=== PATIENT | female | born 1995 | race Caucasian/White ===

== ENCOUNTER 2024-07-13 09:13 | Outpatient (CLI) | payer BC, OTHER, SELFPAY ==
--- NOTE | 2024-07-13 09:15 | CRLHL7_ITS ---
For Patients: As a result of the Century Cures Act, medical imaging exams and procedure reports are released immediately into your electronic medical record. You may view this report before your referring provider. If you have questions, please contact your health care provider. OB ULTRASOUND LESS THAN 14 WEEKS, 07/13/2024 COMPARISON: None. TECHNIQUE: Real time cannon scale imaging of the fetus was performed. Transvaginal imaging performed. FINDINGS: Imaging: TV. LMP: 05/17/2024. CASS by LMP: 02/21/2025. GA: 8 weeks 1 day. CRL: 1.6 cm, 8 weeks 0 days. CASS 02/22/2025. FHR: 161 bpm. GEST SAC: 2.9 cm, appears WNL. YOLK SAC: 3.7 mm, appears WNL. RIGHT OV: 3 x 2.2 x 3 cm, WNL. CL. LEFT OV: 2.7 x 1.7 x 2.3 cm, WNL. IMPRESSION: Single living intrauterine measuring 8 weeks 0 days and sonographic due date 02/22/2025. Jax Perez M.D. Diagnostic Radiologist [email or web address] Transcribed: 12:47 am DW/Dictated by: Jax Perez MD @ 07/13/2024 9:53:00 AM (Electronically Signed)
== END 2024-07-13 09:14 | disposition home or self-care (01) ==
PROVIDERS: Visit Provider Physician Assistant
DX: Z34.91 Encounter for supervision of normal pregnancy, unspecified, first trimester (principal); Z3A.08 8 weeks gestation of pregnancy
CPT/HCPCS: 76817; 83021; 86592; 86703; 86704; 86706; 86762; 86787; 86803; 86850; 86900; 86901; 87086; 87340; 87491; 87591

== ENCOUNTER 2024-09-21 10:15 | Outpatient (CLI) | payer BC, SELFPAY ==
--- NOTE | 2024-09-21 10:15 | CRLHL7_ITS ---
For Patients: As a result of the Century Cures Act, medical imaging exams and procedure reports are released immediately into your electronic medical record. You may view this report before your referring provider. If you have questions, please contact your health care provider. INDICATION: Cervical assessment. History of delivery. TECHNIQUE: Ultrasound OB pelvis transabdominal and transvaginal, limited views of the cervix. COMPARISON: Ob ultrasound on September 07, 2024. FINDINGS: LMP: 02/21/2025, gestational age of 18 weeks and 1 day Cervix is visualized measuring 4-4.9 cm on transvaginal view. positioning: Transverse, maternal right heart rate: 149 beats per minute. Placenta: Posterior Amniotic fluid: 3.7 cm Difficult to delineate internal cervical os and placenta edge due to persistent lower uterine contraction during the entire exam. IMPRESSION: 1. Single living intrauterine gestation in transverse presentation. 2. Cervix measures approximately 4-4.9 cm on transvaginal view. 3. Difficult to delineate internal cervical os and placenta edge secondary to persistent lower uterine contractions during the entire exam. Placenta previa may still be present. Recommend close follow-up. Dictated by Ailyn Bolton MD @ 09/25/2024 5:35:16 PM (Electronically Signed)
== END 2024-09-21 10:16 | disposition home or self-care (01) ==
LOC: US 10:16
PROVIDERS: Visit Provider Obstetrics & Gynecology
DX: O09.212 Supervision of pregnancy with history of pre-term labor, second trimester (principal); Z3A.18 18 weeks gestation of pregnancy
CPT/HCPCS: 76815; 76816; 76817

== ENCOUNTER 2024-10-19 10:09 | Outpatient (CLI) | payer BC, SELFPAY ==
--- NOTE | 2024-10-19 10:15 | CRLHL7_ITS ---
For Patients: As a result of the Century Cures Act, medical imaging exams and procedure reports are released immediately into your electronic medical record. You may view this report before your referring provider. If you have questions, please contact your health care provider. OB ULTRASOUND FOLLOW-UP/LIMITED, 10/19/2024 CLINICAL HISTORY: History of pre-term labor. COMPARISON: 09/21/2024, 09/07/2024, 08/10/2024. TECHNIQUE: Real time cannon scale imaging of the fetus was performed. Transabdominal and transvaginal imaging performed. Transvaginal ultrasound of the pelvis was performed to better evaluate the genitourinary organs such as the ovaries and/or endometrium. FINDINGS: CASS by LMP: 02/21/2025. GA: 22 weeks 1 day. Cervix: Visualized. TV measurement 4.2 cm. Positioning: Vertex. Amniotic Fluid: 5.4 cm SDP. Placenta: Technique: TA and TV. Placenta Position: Posterior. Dopplers: Heart Rate: 149 bpm. IMPRESSION: 1. Transvaginal imaging of the cervix performed. The cervix is closed and measures 4.2 cm without funneling or endocervical fluid. 2. Posterior placenta. The placental edge still appears to be over the internal cervical os representing persistent previa. Jax Perez M.D. Diagnostic Radiologist [email or web address] Transcribed: 12:24 pm DW/Dictated by: Jax Perez MD @ 10/19/2024 11:26:00 AM (Electronically Signed)
== END 2024-10-19 10:10 | disposition home or self-care (01) ==
LOC: US 10:09
PROVIDERS: Visit Provider Obstetrics & Gynecology
DX: O09.212 Supervision of pregnancy with history of pre-term labor, second trimester (principal); Z3A.22 22 weeks gestation of pregnancy
CPT/HCPCS: 76816; 76817

== ENCOUNTER 2024-11-02 12:11 | Outpatient (CLI) | payer BC, SELFPAY ==
--- NOTE | 2024-11-02 12:15 | CRLHL7_ITS ---
For Patients: As a result of the Cures Act, medical imaging exams and procedure reports are released immediately into your electronic medical record. You may view this report before your referring provider. If you have questions, please contact your health care provider. OB ULTRASOUND CASS by LMP: 02/21/2025. GA: 24 w, 1 d. Single. Comparison: 10/19/2024, 09/21/2024, 09/07/2024. INDICATION: Cervix/placenta evaluation. History of pre-term labor. TECHNIQUE: Real time grayscale imaging of the fetus was performed. Transabdominal and transvaginal. Transvaginal imaging performed to better evaluate the cervix. CERVIX: Visualized. TV Measurement: 3.8 cm. POSITIONING: Breech. AMNIOTIC FLUID: 4.7 cm. SDP (N: greater than 2 x 1 cm) PLACENTA: Technique: Transabdominal. PLACENTA POSITION: Posterior. DOPPLER: heart rate: 144 bpm. IMPRESSION: 1. The cervix is closed and measures 3.8 cm, confirmed with transvaginal imaging. 2. Posterior placenta is present with the edge of the placenta overlying the internal cervical os consistent with previa. Jax Perez M.D. Diagnostic Radiologist [email or web address] TRINH/stephen mitchell/Dictated by: Jax Perez MD @ 11/02/2024 4:05:00 PM (Electronically Signed)
== END 2024-11-02 12:12 | disposition home or self-care (01) ==
LOC: US 12:11
PROVIDERS: Visit Provider Obstetrics & Gynecology
DX: O09.212 Supervision of pregnancy with history of pre-term labor, second trimester (principal); Z3A.24 24 weeks gestation of pregnancy
CPT/HCPCS: 76815; 76817

== ENCOUNTER 2024-12-02 09:06 | Outpatient (CLI) | payer BC, SELFPAY ==
--- NOTE | 2024-12-02 09:15 | US_ITS ---
Patient: SRINI GILMAN Facility:?[facility] Patient ID:?[id number] Site Patient ID:?[id number]. Site :?[id number] Study:?US-OB Pelvis LMT with TV-12/02/2024 10:22:10 AM Ordering Physician:?Reyes Mandel Final Report: OB ULTRASOUND LMP: 05/17/2024. CASS by LMP: 02/21/2025. GA: 28 w, 3 d. Single. Comparison: Ultrasound 11/02/2024, 10/19/2024, 09/21/2024. INDICATION: Follow-up cervix/placenta. TECHNIQUE: Real time grayscale imaging of the fetus was performed. Transabdominal and transvaginal. Transvaginal imaging performed to better demonstrated the cervix. CERVIX: Visualized. TV Measurement: 3.2 cm. POSITIONING: Vertex. AMNIOTIC FLUID: 3.3 cm. SDP (N: greater than 2 x 1 cm) PLACENTA: Technique: Transabdominal. PLACENTA POSITION: Posterior. DOPPLER: heart rate: 142 bpm. IMPRESSION: Transvaginal and transabdominal imaging utilized. The edge of the posterior placenta is located 9 mm from the internal cervical os with transvaginal imaging. The cervix is closed and measures 3.2 cm. Jax Perez M.D. Diagnostic Radiologist [email or web address] TRINH/stephen D& Transcribed: 12:41 p.mNyla mitchell/Dictated by: Jax Perez MD @ 12/02/2024 11:04:00 AM Signed by:?Jax Perez MD @12/02/2024 12:47:20 PM (Electronic Signature)
== END 2024-12-02 09:07 | disposition home or self-care (01) ==
LOC: US 09:06
PROVIDERS: Visit Provider Obstetrics & Gynecology
DX: Z34.93 Encounter for supervision of normal pregnancy, unspecified, third trimester (principal); Z3A.28 28 weeks gestation of pregnancy
CPT/HCPCS: 76815; 76817; 86592

== ENCOUNTER 2024-12-07 08:40 | Outpatient (CLI) | payer BC, SELFPAY | END 2024-12-07 08:41 | disposition home or self-care (01) | LOC: NFLDREF 12-23 03:11 | PROVIDERS: Visit Provider Obstetrics & Gynecology | DX: R73.09 Other abnormal glucose (principal) | CPT/HCPCS: 82951; 82952 ==

== ENCOUNTER 2025-01-13 09:21 | Outpatient (CLI) | payer BC, SELFPAY ==
--- NOTE | 2025-01-13 09:15 | CRLHL7_ITS ---
For Patients: As a result of the Cures Act, medical imaging exams and procedure reports are released immediately into your electronic medical record. You may view this report before your referring provider. If you have questions, please contact your health care provider. OB ULTRASOUND LMP: 05/17/2024. CASS by LMP: 02/21/2025. GA: 34 w, 3 d. Single. Comparison: 12/02/2024, 11/02/2024, 10/19/2024. INDICATION: Placental edge. TECHNIQUE: Real time grayscale imaging of the fetus was performed. Transabdominal and transvaginal. Transvaginal imaging performed to better evaluate the cervix. CERVIX: Visualized. TV Measurement: 2.4-2.9 cm. POSITIONING: Vertex. AMNIOTIC FLUID: 5.9 cm. SDP (N: greater than 2 x 1 cm) PLACENTA: Technique: Transabdominal. PLACENTA POSITION: Posterior. DOPPLER: heart rate: 152 bpm. IMPRESSION: The cervix is closed and measures 2.9 cm. No funneling or endocervical fluid. The edge of the posterior placenta is located 1.9 cm from the internal cervical os with transvaginal imaging. Jax Perez M.D. Diagnostic Radiologist [email or web address] TRINH/stephen mitchell/Dictated by: Jax Perez MD @ 01/13/2025 10:51:00 AM (Electronically Signed)
== END 2025-01-13 09:22 | disposition home or self-care (01) ==
LOC: US 09:21
PROVIDERS: Visit Provider Obstetrics & Gynecology
DX: O44.43 Low lying placenta NOS or without hemorrhage, third trimester (principal); Z3A.34 34 weeks gestation of pregnancy
CPT/HCPCS: 76816; 76817

== ENCOUNTER 2025-01-25 13:00 | Outpatient (CLI) | payer BC, SELFPAY ==
--- NOTE | 2025-01-25 13:00 | CRLHL7_ITS ---
For Patients: As a result of the Century Cures Act, medical imaging exams and procedure reports are released immediately into your electronic medical record. You may view this report before your referring provider. If you have questions, please contact your health care provider. OB ULTRASOUND CASS by LMP: 02/21/2025. GA: 36 w, 1 d. Single. Comparison: 03/15/2024, 12/02/2024, 11/02/2024. INDICATION: Low-lying placenta. TECHNIQUE: Real time grayscale imaging of the fetus was performed. Transabdominal and transvaginal. Transvaginal imaging performed to better demonstrated the cervix. CERVIX: Visualized. TV measurement: 2.4 cm. POSITIONING: Vertex. AMNIOTIC FLUID: 5.8 cm. SDP (N: greater than 2 x 1 cm) PLACENTA: Technique: Transabdominal. PLACENTA POSITION: Posterior. PLACENTAL EDGE: 3 cm. DOPPLER: heart rate: 152 bpm. IMPRESSION: Transvaginal evaluation of the cervix and placenta performed. The cervix is closed and measures 2.4 cm. The edge of the posterior placenta is located 3 cm from the internal cervical os. Jax Perez M.D. Diagnostic Radiologist [email or web address] TRINH/stephen mitchell/Dictated by: Jax Perez MD @ 01/25/2025 4:04:00 PM (Electronically Signed)
== END 2025-01-25 13:01 | disposition home or self-care (01) ==
LOC: US 13:00
PROVIDERS: Visit Provider Physician Assistant
DX: O44.43 Low lying placenta NOS or without hemorrhage, third trimester (principal); Z3A.36 36 weeks gestation of pregnancy
CPT/HCPCS: 76816; 76817

== ENCOUNTER 2025-01-27 20:30 | Inpatient (IN) | payer BC, SELFPAY ==
[2025-01-27 17:14] VITALS: BP 132/88; PULSE 89
[2025-01-27 17:17] VITALS: RESP 16; TEMP 37.2
[2025-01-27 19:22] VITALS: BP 130/89; PULSE 79; PULSE 82; O2SAT 97
[2025-01-27 20:43] VITALS: BP 121/75; PULSE 84; RESP 18; TEMP 36.7; O2SAT 98
[2025-01-28] VITALS (34 sets, daily range): BP systolic 97–133; BP diastolic 52–92; PULSE 67–104; RESP 16–20; TEMP 36.6–36.8; O2SAT 96–100; BMI 30.1
--- NOTE | 2025-01-28 08:57 | PM.OBHPLI ---
OB - H&P: HPI Labor/Induction History of Present Illness Date Seen: 01/28/25 Chief Complaint: Chad is a 29-year-old G2 P 0-1-0-1 woman at 36 weeks, 4 days gestation who was been observed overnight for contractions. She has a history of pre term labor after PPROM at 33 weeks in her previous . She felt contractions were getting stronger last night, but is now only feeling slight cramping. This is also complicated by/notable for: 1. History of pulmonary embolism in May 2020. She has been treated with Lovenox 40 mg nightly, with her last dose on the evening of 01/26/2025. 2. Posterior placenta previa, having resolved 01/25/2025 Chief complaint: Maternity Narrative: Chad Dover is a 29 year old female Specific Issues/Plans Partner: Toro Daughter: Jaimee Baby: Eagle! Dr. Dodson's [id number] # History of PE in 05/2020. She had COVID-19 in December of 2019 and had been on OCPs, however discontinued in March of 2020. Per patient report thrombophilia workup was negative On intermediate dose Lovenox 40 mg b.i.d.- changed to 40mg daily by [facility]. 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 - Consider recheck hepB immunity at future labs # thickened NT, greater than the 95th percentile at 12 weeks Low risk NIPT # Elevated 1 hr GTT = 151 3 hr GTT entirely normal # Posterior placenta previa on [facility] USN at 16wks, 20 weeks, RESOLVED 01/25 Pelvic rest Repeat US 12/02: low lying posterior placenta 9 mm from internal os Low-lying placenta 1.85 cm from internal os at 34 weeks: Continued pelvic rest Group consensus 01/19: Type and cross 2 u, two large bore IVs, appropriate for vaginal delivery Desires repeat ultrasound at 36 weeks to reassess placenta: 3.0 cm from internal os Imaging: - 08/10/24: Single tone at 12 weeks 1 day. The nuchal translucency measurement was thickened at more than 95th percentile. Nasal bone was visualized. Sonographic biometry agrees with gestational age predicted by signed CASS. Visualized anatomy appropriate for early gestational age. MFM consult 08/20/24:Recommendations: Medications: Can change to prophylactic anticoagulation Lovenox 40 mg daily for the remainder of the and continued for at least 6 weeks . Close monitoring for signs/symptoms of VTE and immediate evaluation if any occur. Ultrasound surveillance: Serial cervical length measurements every 2 weeks from 16-24 weeks increasing frequency 2 weekly cervical length is less than 30 mm. If cervical shortening less than 25 mm prior to 24 weeks recommend further counseling regarding treatment with vaginal progesterone versus cervical cerclage. Given finding of thickened NT on today's ultrasound, recommend the following: Early anatomic survey with transvaginal ultrasound with MFM at 16 weeks. If any structural abnormalities are suspected the patient could opt for invasive diagnostic testing. Comprehensive anatomy and transvaginal ultrasound with MFM at 20 weeks. Transvaginal cervical length assessments at 18 and 22 weeks in [place]. Timing and mode of delivery: Schedule induction of labor at 39 weeks is recommended. - 09/07/24: 16wk MFM: Variable lie. SDP 3.8cm. EFW 59%. 3 vessel cord. Posterior placenta w/ previa. Cervix closed 3.8cm. Repeat USN in [place] for cervical length at 18 and 22 weeks. LVL 2 USN with MFM [place] in 3-4 weeks. - 10/08/2024: Posterior previa noted again, three-vessel umbilical cord, single deepest pocket of amniotic fluid: 5.6 cm. Abdominal circumference: 68th percentile, EFW: 46 percentile. Cervix: Closed and measuring 38.4 mm. Roland at 20 weeks 4 days. No anomalies commonly detected by ultrasound were identified and the detailed anatomic survey. Growth parameters an estimated weight were consistent with gestational age. The amniotic fluid volume appeared normal. Transvaginal imaging the cervix appeared long and closed. There was a posterior placenta previa. Recommendations/plan: Transvaginal cervical length assessment in [place] at 22 weeks. Growth ultrasound at 28 weeks to reassess placental location. - 10/19/24: Cervix: Closed measuring 4.2 cm, vertex, SDP 5.4 cm. Placenta previa appears to still be present - 11/02/24: Cervix 3.8 cm, breech, SDP 4.7 cm, placenta previa still present - 12/02/24: cephalic, cervical length 3.2 cm, SDP 3.3, posterior low lying placenta 9 mm from os - 01/13/25: cephalic, cervical length 2.4-2.9 cm, SDP 5.9cm, posterior low lying placenta 1.85cm from os - 01/25/2025: Cephalic, SDP 5.8, placenta 3 cm from internal cervical os. Vaccinations: COVID: declines Flu: 12/02/24 Tdap: 12/16/24 RSV: 01/13/25 32 week mental health: both 0 Last pap: 09/23/22, NIL. Meds Home Medications and Allergies Home Medications ?Medication ?Instructions ?Recorded ?Confirmed ?Type [id number] 3 fatty no.1 27 1 cap PO 07/13/24 01/25/25 History mg-1 mg-300 mg capsule Bacillus coagulans 10 billion cell 1 cell PO 11/02/24 01/25/25 History capsule,delayed release (Probiotic (B. coagulans)) enoxaparin 40 mg/0.4 mL 40 mg (0.4 mL) subcut QDAY 90 days 11/08/24 01/27/25 Rx subcutaneous syringe (Lovenox) #36 mL Allergies Allergy/AdvReac Type Severity Reaction Status Date / Time No Known Drug Allergies Allergy Verified 01/25/25 13:59 OB - H&P: Exam Physical Exam: Vital signs: Temp Pulse Resp BP Pulse Ox 97.9 F 82 16 128/82 99 01/28/25 04:44 01/28/25 08:56 01/28/25 04:44 01/28/25 08:56 01/28/25 08:56 Narrative: Physical exam: General: No acute distress Psych: Alert and oriented x3, full affect HEENT: Normocephalic, atraumatic Neck: No cervical adenopathy, no thyromegaly Heart: Regular rate and rhythm, no murmur rub or gallop Lungs: Clear to auscultation bilaterally Abdomen: Soft, nontender, gravid Lower extremities: No edema or erythema Pelvic exam: 5-6 cm, 95%, +1 station, cervical os posterior and slightly to patient's left, bulging bag of water tracing: Baseline 130, accelerations present, moderate variability. No decelerations. Contractions registering every 2-5 minutes. OB - Problem Based A/P Additional Plan (1) labor: Status: Acute Plan: By cervical dilation, she would be entering active phase. However, she is not feeling contractions. I suspect that she will progress quickly after rupture of membranes. We discussed options for augmentation with AROM versus continued expectant management. At this time, she prefers the latter. Of note, her BPs are slightly elevated. Will obtain HELLP labs. GBS negative. Delivery/Labor/Induction Plan Plan: expectant management
[2025-01-28 10:16] LABS: Hematocrit* 37.3 % (33.0-51.0); Hemoglobin* 12.8 gm/dL (12.0-16.0); Immature Granulocytes Pct Auto 2.1 %; Mean Corpuscular HGB Conc 34 gm/dL (32-36); Mean Corpuscular Hemoglobin 32 pg (26-34); Mean Corpuscular Volume 93 fL (80-100); RDW Coefficient of Variation % 13.0 % (11.5-15.5); Red Blood Count* 4.03 m/uL (4.00-5.20); White Blood Count* 12.16 K/uL (4.50-11.00)
[2025-01-28 10:19] LABS: Immature Granulocytes Abs Auto 0.30 K/uL (0.00-0.30); Lymphocytes Absolute Auto 1.80 K/uL (0.90-2.90); Slide Review Reflex No
[2025-01-28 10:34] LABS: Alanine Aminotransferase* 18 U/L (4-35); Aspartate Amino Transferase* 23 U/L (12-35); Blood Urea Nitrogen* 9 mg/dL (5-24); Creatinine* 0.5 mg/dL (0.5-1.5); Estimated Glomerular Filt Rate 129 ml/min
[2025-01-28 14:15] LABS: Protein Creatinine Ratio Urine 0.08 (0-0.19)
--- NOTE | 2025-01-28 14:15 | PM.OBPNL ---
Subjective Date Seen: 01/28/25 Narrative: Chad is a 29 yo woman at 36 4/7 weeks' gestation here for labor. History is notable for history of PE (maintained on prophylactic Lovenox daily until 01/26), posterior low-lying placenta that has resolved, history of PPROM in 33rd week with previous . She was found to have regular contractions, cervical change, and advanced cervical dilation this AM. She has not been feeling strong contractions today. Her last exam showed her to be 5.5 / 95 / +1 Objective Exam: Gen - NAD, pleasant, stretching SVE - 5.5 / 95 / +1, bulging bag of water cervical opening difficult to reach due to low station AROM for clear fluid tracing: Baseline 150 / accelerations present / no decelerations / moderate variability Vital Signs: Last Vital Signs Temp 98.3 F 01/28/25 09:30 Pulse 83 01/28/25 14:12 Resp 17 01/28/25 09:30 BP 120/86 01/28/25 14:12 Pulse Ox 98 01/28/25 14:12 One midly elevated BP, after which HELLP labs were ordered and normal. Otherwise low to normal BP Assessment Amniotic Membrane Status: AROM Status: Category l Tracing Comments: Reassuring status. GBS negative. Labor Progress: No change in cervix since this AM. AROM for clear fluid. Maternal Status: One elevated BP, normal HELLP labs, suspect due to position. Plan Plan: Continuous monitoring. Epidural as desired Anticipate .
[2025-01-28] MEDS: LACTATED RINGERS 1000 ML 1,000 ML 999 ML IV (15:54)
[2025-01-28] MEDS: LIDOCAINE 2% (PF) 5 ML VIAL EPIDURAL (16:32)
[2025-01-28] MEDS: ROPIVACAINE 0.2% 100 ml 100 ML 12 MG EPIDURAL (16:32)
--- NOTE | 2025-01-28 16:46 | PM.ANBPRC ---
[facility] Medical History History of vaginal delivery Surgical History History of knee surgery ?Z98.890 - Other specified postprocedural states (ICD-10) Social History (Updated 07/13/24 @ 11:57 by Maru Day PA-C) Narrative: Occupation: RN. Marital status: . Islam/cultural needs: no. Chemical or radiation exposure: no. Pre- tobacco use: no. Pre- alcohol use: no. Current tobacco use: no. Current alcohol use: no. Recreational drug use: no. Dietary restrictions: no. Blood transfusion acceptable in an emergency: yes. PSYCHOSOCIAL HISTORY: History of depression or currently depressed: no. Current or past physical, emotional, or sexual mistreatment: no. Problems that will make it hard to make it to appointments: no. What is your current living situation?: I presently have a place to live Problems where you live: no known problems In the past 12 months, utilities in danger of being shut off: no In past 12 months, lack of transportation kept you from medical appts, meetings, work, or getting things needed for daily living: no In the past 12 mos, have been you worried that your food would run out before you had money to buy more?: never true In the past 12 mos, the food you bought just didn't last and you didn't have money to buy more?: never true Smoking Status: Never smoker How often does anyone, including family, friends and others, physically hurt you: never How often does anyone, including family, friends and others, insult or talk down to you: never How often does anyone, including family, friends and others, threaten you with harm: never How often does anyone, including family, friends and others, scream or curse at you: never Meds Home Medications and Allergies Home Medications ?Medication ?Instructions ?Recorded ?Confirmed ?Type VBS-hnmc-CN-omega 3 fatty no.1 27 1 cap PO 07/13/24 01/25/25 History mg-1 mg-300 mg capsule Bacillus coagulans 10 billion cell 1 cell PO 11/02/24 01/25/25 History capsule,delayed release (Probiotic (B. coagulans)) enoxaparin 40 mg/0.4 mL 40 mg (0.4 mL) subcut QDAY 90 days 11/08/24 01/27/25 Rx subcutaneous syringe (Lovenox) #36 mL Allergies Allergy/AdvReac Type Severity Reaction Status Date / Time No Known Drug Allergies Allergy Verified 01/28/25 13:47 Results Labs Labs: Laboratory Results - last 24 hr 01/28/25 01/28/25 09:05 10:07 WBC 12.16 H RBC 4.03 Hgb 12.8 Hct 37.3 MCV 93 MCH 32 MCHC 34 RDW Coeff of Irasema 13.0 Plt Count 206 Neut % (Auto) 76.2 H Lymph % (Auto) 15.2 L [place] % (Auto) 5.8 Eos % (Auto) 0.5 Baso % (Auto) 0.2 Neut # (Auto) 9.30 H Lymph # (Auto) 1.80 [place] # (Auto) 0.70 Eos # (Auto) 0.10 Baso # (Auto) 0.00 Abs Immat Gran (auto) 0.30 Imm/Tot Granulo (auto) 2.1 BUN 9 Creatinine 0.5 Estimated GFR 129 AST 23 ALT 18 Urine Creatinine 105.9 Protein/Creatinin Ratio 0.08 Urine Total Protein 8 Syphilis IgG Antibody 0.02 Vital Signs Vital Signs: Last Vital Signs Temp 98.2 F 01/28/25 14:12 Pulse 88 01/28/25 16:44 Resp 17 01/28/25 09:30 BP 105/68 01/28/25 16:44 Pulse Ox 100 01/28/25 16:37 Weight: 77.111 kg Height: 160.02 cm Anesthesia Procedures Epidural Insertion Patient Location: OB Start Time: 16:00 Stop Time: 17:00 Start Date: 01/28/25 Stop Date: 01/28/25 Reason for Block: primary anesthetic Patient Position: sitting Performed By: Alexander Vela Preanesthetic Checklist: IV checked, risks and benefits discussed, surgical consent, monitors and equipment checked, pre-op evaluation, timeout performed and anesthesia consent Prep: chlorhexidine gluconate Monitoring: blood pressure monitoring, clamp truck driver, continuous pulse oximetry and heart rate Approach: midline Vertebral Space: lumbar (1-5) Needle Type: Tuohy needle Injection Technique: continuous catheter Needle gauge: 17 Needle Length (cm): 10 cm Needle Insertion Depth (cm): 6 Catheter Gauge: 19 Catheter Type: multi-orifice Catheter at skin depth (cm): 12 Test Dose Result: negative and lidocaine 1.5% with epinephrine 1 to 200,000 Events: other
[2025-01-28] MEDS: LACTATED RINGERS 1000 ML 1,000 ML 325 ML IV (17:10)
[2025-01-28] MEDS: OXYTOCIN 30 unit/500 ML in NS 30 UNIT/500 ML BAG 300 UNIT IVPB (17:38)
--- NOTE | 2025-01-28 19:26 | W.PM.VAGDEL1 ---
Procedure Delivery date: 01/28/25 Procedure Done: [employer] Procedure Details: The patient is a 29 year-old G 2 P 0-1-0-1 woman admitted on 01/27/2025 at 36 Weeks, 3 Days gestation for observation for pre term labor.? Cervical exam on admission was 3 cm/50 % effaced/-2 station with membranes intact in vertex presentation.? Contractions were every 2-3 minutes.? tracing was reassuring. Her cervix changed to 3 cm, 75% and 0 station and she was admitted for observation. The following morning, on 01/28/2025, at 36 weeks and 4 days gestation, exam revealed her to be 5.5 cm, 95% effaced and +1 station. She was then admitted to inpatient status for labor. Ultimately, after observing for several hours with contractions continuing without any cervical change,? AROM occurred at 2:08 p.m. with clear fluid. ? Labor Analgesia:? Epidural ? Pitocin:? No ? Labor onset:? 3:00 p.m. ? Complete:? 4:50 p.m. ? Pushing:? 5:00 p.m. ? heart tones during second stage were notable for early decelerations and some prolonged decelerations with contractions with slow return to baseline. These were managed with position change. Fetus exhibited more prolonged deceleration when reaching . A small episiotomy was performed overlying the site of her previous episiotomy using a scalpel to hasten delivery. ? At 5:33 p.m. a viable female infant delivered in direct OA presentation with restitution to ROT presentation over episiotomy via spontaneous vaginal delivery.? Infant was placed on maternal abdomen.? Cord was clamped and cut after a 30-60 second delay.? Nose and mouth were bulb suctioned.? Infant weight pending.? 7 at 1 minute and 9 at 5 minutes.? Shoulder dystocia: No.? Nuchal cord: No. ? Placenta delivered spontaneously and complete at 5:41 p.m. with a 3 vessel cord. ? Mother and were stable after delivery. ? Lacerations:? Second-degree perineal laceration / episiotomy without extension, repaired with 2-0 Vicryl in the usual fashion. ? Blood loss: 100 mL. Blood loss measurement type: EBL ? Sponge and needles counts are correct. Events: Labor < 37 Weeks Intrapartal Events: Labor Augmentation Delivery augmentation: rupture of membranes Delivery monitor: external FHT Route of delivery: Episiotomy description: Right Mediolateral Laceration description: Perineal - 2nd Degree Delivery repair: Vicryl Estimated blood loss (mL): 100 Anesthesia type: Epidural Disposition: floor Complications: None
[2025-01-29 00:37] VITALS: BP 116/78; PULSE 85; RESP 18; TEMP 36.2; O2SAT 96
[2025-01-29] MEDS: IBUPROFEN 600 MG TABLET PO ×4 (00:37→21:09)
[2025-01-29] MEDS: ENOXAPARIN 40 MG/0.4 ML INJ SUBCUT (01:56)
[2025-01-29 03:48] VITALS: BP 124/78; PULSE 82; RESP 16; TEMP 36.5; O2SAT 96
[2025-01-29] MEDS: ACETAMINOPHEN 500 MG TABLET 1000 MG PO ×4 (04:52→23:43)
[2025-01-29 07:10] LABS: Hemoglobin* 12.3 gm/dL (12.0-16.0)
[2025-01-29] MEDS: DOCUSATE SODIUM 100 MG CAPSULE PO (07:55)
[2025-01-29 07:58] VITALS: BP 106/72; PULSE 82; RESP 17; TEMP 36.8
[2025-01-29 10:04] LABS: Hematocrit* 35.1 % (33.0-51.0); Hemoglobin* 12.0 gm/dL (12.0-16.0); Immature Granulocytes Pct Auto 1.3 %; Mean Corpuscular HGB Conc 34 gm/dL (32-36); Mean Corpuscular Hemoglobin 32 pg (26-34); Mean Corpuscular Volume 93 fL (80-100); RDW Coefficient of Variation % 12.9 % (11.5-15.5); Red Blood Count* 3.76 m/uL (4.00-5.20); White Blood Count* 14.24 K/uL (4.50-11.00)
[2025-01-29 10:06] LABS: Immature Granulocytes Abs Auto 0.20 K/uL (0.00-0.30); Lymphocytes Absolute Auto 1.40 K/uL (0.90-2.90); Slide Review Reflex No
[2025-01-29 10:19] LABS: Blood Urea Nitrogen* 11 mg/dL (5-24); Creatinine* 0.8 mg/dL (0.5-1.5); Est. Creatinine Clearance* 85.06; Estimated Glomerular Filt Rate 102 ml/min
--- NOTE | 2025-01-29 10:19 | PM.OBPNVD1 ---
OB - PN:Subj Subjective Date Seen: 01/29/25 Patient comments OB post-: no complaints [place] status: feeding status: exclusively OB - PN: Obj Exam Physical Exam: Vital signs: Temp Pulse Resp BP Pulse Ox O2 Del Method 98.2 F 82 17 106/72 96 Room Air 01/29/25 07:58 01/29/25 07:58 01/29/25 07:58 01/29/25 07:58 01/29/25 03:48 01/29/25 07:58 Narrative: GENERAL APPEARANCE:? normal affect, alert, no distress MOOD:? appropriate CHEST:? clear to auscultation HEART:? regular rate and rhythm ABDOMEN:? soft, non-tender the uterine fundus is At Umbilicus, Midline and is appropriate for the stage of recovery. EXTREMITIES:? normal and no edema OB - PN: Obj Data Labs Labs: Laboratory Results - last 24 hr 01/28/25 01/28/25 01/29/25 09:05 10:07 06:50 WBC 12.16 H RBC 4.03 Hgb 12.8 12.3 Hct 37.3 MCV 93 MCH 32 MCHC 34 RDW Coeff of Irasema 13.0 Plt Count 206 Neut % (Auto) 76.2 H Lymph % (Auto) 15.2 L Hendricks % (Auto) 5.8 Eos % (Auto) 0.5 Baso % (Auto) 0.2 Neut # (Auto) 9.30 H Lymph # (Auto) 1.80 Hendricks # (Auto) 0.70 Eos # (Auto) 0.10 Baso # (Auto) 0.00 Abs Immat Gran (auto) 0.30 Imm/Tot Granulo (auto) 2.1 BUN 9 Creatinine 0.5 Estimated GFR 129 AST 23 ALT 18 Urine Creatinine 105.9 Protein/Creatinin Ratio 0.08 Urine Total Protein 8 Syphilis IgG Antibody 0.02 01/29/25 09:58 WBC 14.24 H RBC 3.76 L Hgb 12.0 Hct 35.1 MCV 93 MCH 32 MCHC 34 RDW Coeff of Irasema 12.9 Plt Count 173 Neut % (Auto) 82.2 H Lymph % (Auto) 9.9 L Hendricks % (Auto) 6.1 Eos % (Auto) 0.4 Baso % (Auto) 0.1 Neut # (Auto) 11.70 H Lymph # (Auto) 1.40 Hendricks # (Auto) 0.90 Eos # (Auto) 0.10 Baso # (Auto) 0.00 Abs Immat Gran (auto) 0.20 Imm/Tot Granulo (auto) 1.3 BUN Creatinine Estimated GFR AST ALT Urine Creatinine Protein/Creatinin Ratio Urine Total Protein Syphilis IgG Antibody OB - PN: A/P Delivery Assessment and Plan (1) labor: Status: Acute Plan day: 1 Plan: routine care Comments: Doing well, prophylactic Lovenox restarted- should continue for at least 6 weeks . Peds recommends baby to continue inpatient observation until tomorrow. If stable, plan to discharge home tomorrow am.
[2025-01-29 10:20] LABS: Alanine Aminotransferase* 17 U/L (4-35); Aspartate Amino Transferase* 31 U/L (12-35)
[2025-01-29 12:14] VITALS: BP 108/73; PULSE 82; RESP 18; TEMP 36.7
[2025-01-29 16:43] VITALS: BP 119/78; PULSE 82; RESP 17; TEMP 36.7; O2SAT 98
[2025-01-30] MEDS: ENOXAPARIN 40 MG/0.4 ML INJ SUBCUT (01:49)
[2025-01-30 01:51] VITALS: BP 115/75; PULSE 82; RESP 16; O2SAT 96
[2025-01-30 05:58] VITALS: BP 112/73; PULSE 75; RESP 15; TEMP 36.9; O2SAT 97
[2025-01-30 08:18] VITALS: BP 121/81; PULSE 80; RESP 16; TEMP 36.6; O2SAT 98
--- NOTE | 2025-01-30 08:33 | PM.OBDSVD1 ---
DS: Providers Provider Time Seen by Provider: 08:33 Date Seen: 01/30/25 Date of admission: 01/28/25 09:00 Primary care physician: Not a Local Provider Admitting Clinician: Lenora Dodson MD Attending Physician on discharge: Cb Taylor MD Date of Discharge: 01/30/25 DS: Diagnosis Discharge Diagnosis (1) History of pulmonary embolism: Status: Acute Problem details: 05/2020. Reports negative thrombophilia workup. (2) (spontaneous vaginal delivery): Status: Acute Exam Narrative: Exam Narrative: GENERAL APPEARANCE:? normal affect, alert, no distress MOOD:? appropriate CHEST:? clear to auscultation HEART:? regular rate and rhythm ABDOMEN:? soft, non-tender the uterine fundus is At Umbilicus, Midline and is appropriate for the stage of recovery. PERINEUM:? mild edema of the perineum, normal lochia EXTREMITIES:? normal and no edema. Const: Vital Signs, click to edit/add: Vital Signs - 24 hr 01/29/25 12:14 01/29/25 16:43 01/30/25 01:51 Temperature 98.1 F 98.0 F Pulse Rate [Pulse Oximeter] 82 82 82 Respiratory Rate 18 17 16 Blood Pressure [Ri ght Arm] 108/73 119/78 115/75 Pulse Oximetry 98 96 Oxygen Delivery Me thod Room Air Room Air Room Air 01/30/25 05:58 01/30/25 08:18 Temperature 98.4 F 97.9 F Pulse Rate [Pulse Oximeter] 75 80 Respiratory Rate 15 16 Blood Pressure [Ri ght Arm] 112/73 121/81 Pulse Oximetry 97 98 Oxygen Delivery Me thod Room Air Room Air OB - DS: Summary Hospital Course Hospital Course: The patient is a 29 year old G 2 P 0202 at 364/7 weeks gestation that was admitted to the Center on 01/28/25 in labor for delivery. She had an uncomplicated vaginal delivery. She delivered a viable female infant. She is breast feeding. the patient has done well. Peripartum Data delivery method: Vaginal Episiotomy description: Midline complications: none [place] Infant Gender: Female Discharge Plan: Home Status at Discharge Functional status at discharge: independent ambulation Overall status at discharge: patient is progressing back to baseline Time Spent with Patient Time attestation: Total time spent providing and/or coordinating discharge services: Time spent: Less than 30 minutes Discharge Plan Discharge Disposition: Home, Self-Care Date of Admission: 01/28/25 09:00 Attending Provider on Discharge: Annalee Taylor Primary Care Provider: Provider,Not a Local Condition: Stable Anticipated Discharge Date/Time: 01/30/25 08:37 Discharge Medications: New acetaminophen 500 mg Tablet 1,000 mg PO Q6H PRNQty: 30 0RF enoxaparin 40 mg/0.4 mL Syringe 40 mg subcut Q24H Qty: 4 4RF ibuprofen 600 mg Tablet 600 mg PO Q6H PRNQty: 30 0RF Continued [id number] 3 fatty no.1 27-1-300 mg capsule 1 cap PO DAILY Probiotic (B. coagulans) 10 billion cell capsule,delayed release(DR/EC) 1 cell PO .PRN enoxaparin [Lovenox] 40 mg/0.4 mL syringe 40 mg subcut QDAY 90 Days Qty: 36 0RF Discharge Orders: Discharge Order (Routine); Ordered 01/30/25 Ordered By: Annalee Taylor Patient Education: OB Vaginal/Breast Feeding Additional Instructions: Plan to continue prophylactic Lovenox 40mg SubQ daily for 6 weeks . Follow up in clinic in 2 weeks for mood and FU. Follow up in clinic in 6 weeks for reagular visit. Contraception plan at the moment: vasectomy. Activity Level: Activity as Tolerated and Other Activity Detail: Nothing vaginally for 6 weeks Discharge Diet: Regular Follow Up Appointments: Provider,Not a Local [Primary Care Provider, Family Practice] Forms: [employer] Info Instructions
== END 2025-01-30 12:00 | disposition home or self-care (01) | DRG 560 ==
LOC: OB OUT 20:31 → OB 20:31
PROVIDERS: Obstetrics & Gynecology; Admitting Provider Obstetrics & Gynecology; Visit Provider Obstetrics & Gynecology
DX: O60.14X0 Preterm labor third trimester with preterm delivery third trimester, not applicable or unspecified (principal); O76 Abnormality in fetal heart rate and rhythm complicating labor and delivery; O70.1 Second degree perineal laceration during delivery; Z86.711 Personal history of pulmonary embolism; Z79.01 Long term (current) use of anticoagulants; Z3A.36 36 weeks gestation of pregnancy; Z37.0 Single live birth; O44.43 Low lying placenta NOS or without hemorrhage, third trimester
CPT/HCPCS: 01967; 36415; 82565; 82570; 84156; 84450; 84460; 84520; 85018; 85025; 86780; A9270; J1650; J2795; J3010; J7120

== ENCOUNTER 2025-02-03 13:08 | Outpatient (CLI) | payer BC, SELFPAY ==
--- NOTE | 2025-02-03 16:34 | W.PM.LAC.MC ---
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 , parts delivery driver Delivery Information Delivery type: Vaginal Gestational Age: 36+4 Gestational Weight For Age: AGA Weight: 3.02 kg Discharge Weight: 2.866 kg Baby's Information Baby's Age at Visit: 6 days Baby's Provider or Clinic: [facility] Jaundice: Yes Past Experience Past Experience: Yes (for 16 months) Current Frequency of Day Feedings: q 3 hrs day and night, occas wakes at 2-2.5 hrs for feeding Both Breasts: No Suck: seems strong Latch: using nipple shield for shorter nipples Length of Time: 10-15 min Goals: at least 1 year Pumping Pumping: Yes Quantity Pumped: just a little to relieve fullness as needed Supplementing EBM Supplement: No Formula Supplement: No Baby Elimination Number of Wet Diapers a Day: ea feeding Number of BM a Day: 4+/day - yellow and seedy Breast/Nipple Condition Breast Information: Breasts are symmetrical with rounded lower quadrants, intramammary distance is less than 1.5 inches. No erythema. Nipples are supple, everted prior to feeding. Breast Shape: Round Engorgement: No Maternal Nipple Condition - Left: Short Maternal Nipple Condition - Right: Short Sore Nipples: No Baby Assessment Skin: Normal and Yellow (to abdomen, less than yesterday per parents) Tongue/frenulum: Normal/elastic Palate: Average Lips: Relaxed and Symmetrical Jaw Alignment: Symmetrical Mucosa: [place], moist Onsite Observation Pre-Feed weight: 3.002 kg Post-Feed weight: 3.064 kg Milk Transferred (mL): 62 Position: Cross cradle Attachment/latch-on achieved: With difficulty and With nipple shield Suck pattern: Suck burst and normal rest Swallow: Audible, consistent Behavior following feed: Relaxed, sleepy Pre-Nursing Left Nipple: Within Normal Limits Pre-Nursing Right Nipple: Within Normal Limits Post-Nursing Left Nipple: Within Normal Limits Assessments/Interventions Assessments/Interventions: Shoaib latched to mom's LEFT breast, latched easily with nipple shield and stayed nursing for 15 minutes. Transferred 62 ml of milk and was contented Shoaib is only nursing one side/feeding due to volume taken in and mom's ample milk supply. Discussed weight gain appropriate from last clinic visit so ok to continue with offering 1 breast/feeding. If baby acts hungry after 10-15 minuter, offer 2nd breast to get more volume to baby and to give mom breast fullness relief. Discussed pumping 1/2-1 oz off her other side if needed for comfort until baby is able to drink a little from both breats ea feeding Education provided: Early feeding cues to maximize timing of latching, Asymmetric latch technique for wide/deep latch to increase milk, Transfer for baby and increase comfort for mom, Supply/demand nature of milk supply, Need for frequent stimulation/milk removal, Alternative feeding methods (SNS, cup, finger feeding, bottling), Use of nipple shield, Pumping for milk management and Milk collection, storage Follow-Up Suggested follow up: Appointment as needed Time Spent Time spent with patient (min): 90 Meds Home Medications and Allergies Home Medications ?Medication ?Instructions ?Recorded ?Confirmed ?Type [id number] 3 fatty no.1 27 1 cap PO DAILY 07/13/24 01/28/25 History mg-1 mg-300 mg capsule Bacillus coagulans 10 billion cell 1 cell PO .PRN 11/02/24 01/28/25 History capsule,delayed release (Probiotic (B. coagulans)) enoxaparin 40 mg/0.4 mL 40 mg (0.4 mL) subcut QDAY 90 days 11/08/24 01/27/25 Rx subcutaneous syringe (Lovenox) #36 mL acetaminophen 500 mg tablet 1,000 mg (2 x 500 mg) PO Q6H PRN 01/30/25 Rx #30 tabs enoxaparin 40 mg/0.4 mL 40 mg (0.4 mL) subcut Q24H #4 mL 01/30/25 Rx subcutaneous syringe ibuprofen 600 mg tablet 600 mg PO Q6H PRN #30 tabs 01/30/25 Rx Allergies Allergy/AdvReac Type Severity Reaction Status Date / Time No Known Drug Allergies Allergy Verified 01/28/25 13:47
== END 2025-02-03 13:09 | disposition home or self-care (01) ==
PROVIDERS: Visit Provider Obstetrics & Gynecology
DX: Z39.1 Encounter for care and examination of lactating mother (principal)
CPT/HCPCS: G0463